=== PATIENT | female | born 1960 | race Caucasian/White ===

== ENCOUNTER 2016-10-07 09:09 | Day surgery (SDC) | payer BC ==
[~2016-10-07 09:09] MED LIST: RINGERS SOLUTION,LACTATED 1,000 ML IV PRN
[2016-10-07 09:47] LABS: Hematocrit 39.9 % (37.0-47.0); Hemoglobin 13.5 gm/dL (12.5-16.0); Mean Cell Volume 91.5 fl (78-100); Mean Corpuscular Hgb Conc 33.8 g/dl (32-36); Mean Platelet Volume 10.4 fl (6.0-9.5); Neutrophil # 2.7 K/mm3 (1.3-6.0); Neutrophil % 51.6 % (42-75.0); Platelet Count 183 K/mm3 (150-450); Red Blood Count 4.36 M/mm3 (4.2-5.4); Red Cell Distribution Width 12.1 % (11.5-14.0); White Blood Count 5.2 K/mm3 (4.0-10.5)
[2016-10-07] MEDS ORDERED: RINGERS SOLUTION,LACTATED 1,000 ML IV ONE (10:08)
[2016-10-07] MEDS ORDERED: SCOPOLAMINE HYDROBROMIDE 1.5 MG PATC TD ONE (10:30)
[2016-10-07] MEDS ORDERED: IBUPROFEN 600 MG TABLET PO PRN (11:59)
[2016-10-07] MEDS ORDERED: ACETAMINOPHEN 500 MG TABLET PO PRN (11:59)
[2016-10-07 13:53] VITALS: BP 128/76
--- NOTE | 2016-10-07 16:00 | OR ---
Operative Report - Dictated Report Narrative: Operative Report 10/07/16 Hysteroscopy Dilatation and Curettage Preoperative Diagnosis: Postmenopausal Bleeding, Personal History of Breast Cancer, Tamoxifen Use Postoperative Diagnosis: Postmenopausal Bleeding, Personal History of Breast Cancer, Tamoxifen Use Procedure: Hysteroscopy Dilatation and Curettage Surgeon: Donna Jain M.D. Anesthesia: [place]ete CRNA Findings: Uterine sound was 10 cm. There was an endometrial polyp on the right aspect of the endometrial cavity which was removed with curettage and sharp dissection hysteroscopically. Fluids: 500 ml EBL: Minimal Drains: None Complications: None Condition: Stable Pathology: Endometrial curettings and polyp Procedure: The patient was taken to the operating room with IV fluids running. She was placed in the dorsal lithotomy position after anesthesia was induced. A bivalve speculum was placed in the vagina. The anterior lip of the cervix was grasped with a single-tooth tenaculum. Uterine sound was passed into the endometrial cavity with ease. Uterine sound was 10 cm. The cervix was dilated with Júnior dilators. The hysteroscope was introduced into the endometrial cavity. The cavity was distended with normal saline. [place] were visualized bilaterally. There is an endometrial polyp on the right aspect of the endometrial cavity. The hysteroscope was removed. The cavity was sharply curetted without difficulty. The hysteroscope was once again introduced into the cavity. The cavity was completely curetted and the polyp was removed. The hysteroscope was removed. The single-tooth tenaculum was removed. Sites were hemostatic. The speculum was removed from the vagina. Sponge counts were correct 2. The patient tolerated the procedure well.
== END 2016-10-07 09:10 | disposition home or self-care (01) ==
LOC: AMB 09:09
PROVIDERS: ATTEND Obstetrics & Gynecology
PROC: 0UDB8ZX Extraction of Endometrium, Via Natural or Artificial Opening Endoscopic, Diagnostic (ICD-10-PCS; principal; 2016-10-07 10:30)
DX: N84.0 Polyp of corpus uteri (principal); N95.0 Postmenopausal bleeding; Z85.3 Personal history of malignant neoplasm of breast; Z79.810 Long term (current) use of selective estrogen receptor modulators (SERMs); Z68.29 Body mass index [BMI] 29.0-29.9, adult

== ENCOUNTER 2017-02-05 10:04 | Day surgery (SDC) | payer BC ==
[~2017-02-05 10:04] MED LIST changes: +ACETAMINOPHEN 160 MG/5 ML BTL PO PRN; +DEXAMETHASONE SOD PHOSPHATE 10 MG/ML VIAL IV PRN; +MORPHINE SULFATE 2 MG/ML DISP.SYRIN IV PRN; +MORPHINE SULFATE 4 MG/ML SYRG IV PRN; +ONDANSETRON HCL/PF 2 MG/ML VIAL IV PRN; +PROMETHAZINE HCL 10 MG in DEXTROSE 5 % IN WATER 50 ML IV PRN; +PROMETHAZINE HCL 5 MG in DEXTROSE 5 % IN WATER 50 ML IV PRN; +RINGER'S SOLUTION,LACTATED 1,000 ML IV PRN; -RINGERS SOLUTION,LACTATED 1,000 ML IV PRN; +oxyCODONE HCL 5 MG/5 ML UDC PO PRN
[2017-02-05] MEDS ORDERED: RINGER'S SOLUTION,LACTATED 1,000 ML IV ONE (10:31)
[2017-02-05] MEDS ORDERED: SCOPOLAMINE HYDROBROMIDE 1.5 MG PATC TD ONE (11:00)
[2017-02-05] MEDS ORDERED: BUPIVACAINE HCL 50 ML VIAL IJ ONE (11:59)
[2017-02-05] MEDS ORDERED: NALOXONE HCL 0.4 MG/ML VIAL IV PRN (12:16)
[2017-02-05] MEDS ORDERED: PROMETHAZINE HCL 12.5 MG in DEXTROSE 5 % IN WATER 50 ML IV PRN ×2 (12:16)
[2017-02-05] MEDS ORDERED: diphenhydrAMINE HCL 50 MG/ML VIAL IV PRN (12:16)
[2017-02-05] MEDS ORDERED: MORPHINE SULFATE 2 MG/ML DISP.SYRIN IV PRN (12:16)
[2017-02-05 15:22] VITALS: BP 122/50
== END 2017-02-05 10:05 | disposition home or self-care (01) ==
LOC: AMB 10:04
PROVIDERS: ATTEND Allergy & Immunology
PROC: 0CTQXZZ Resection of Adenoids, External Approach (ICD-10-PCS; 2017-02-05)
PROC: 0CTPXZZ Resection of Tonsils, External Approach (ICD-10-PCS; principal; 2017-02-05 11:50)
DX: J35.03 Chronic tonsillitis and adenoiditis (principal); Z68.29 Body mass index [BMI] 29.0-29.9, adult

== ENCOUNTER 2017-02-09 18:38 | Emergency (ER) | payer BC ==
[2017-02-09] MEDS ORDERED: diphenhydrAMINE HCL 12.5 MG/5 ML BTL PO ONE (19:02)
[2017-02-09] MEDS ORDERED: NYSTATIN 60 ML BTL PO ONE ×2 (19:02→19:08)
[2017-02-09] MEDS ORDERED: LIDOCAINE HCL 20 ML UDC MM ONE (19:02)
[2017-02-09] MEDS ORDERED: MAG HYDROX/ALUMINUM HYD/SIMETH 30 ML UDC PO ONE (19:02)
--- NOTE | 2017-02-09 19:11 | ERNOTE ---
Medical Problem HPI - Narrative Date of Service: 02/09/17 - General Chief Complaint: Nausea/Vomiting Time Seen by Provider: 02/09/17 18:56 Source: patient Exam Limitations: no limitations - Immun/Allergies/Home Medications Immunizations: IMMUNIZATION HX History of Influenza Vaccine Yes Hx Pneumococcal Vaccination No Allergies/Adverse Reactions: Allergies acetaminophen [From Percocet] Adverse Reaction (Mild, Verified 02/09/17 18:54) N/V hydrocodone bitartrate [From Vicodin] Adverse Reaction (Mild, Verified 02/09/17 18:54) N/V oxycodone HCl [From Percocet] Adverse Reaction (Mild, Verified 02/09/17 18:54) N/V IV-P Dye Adverse Reaction (Intermediate, Uncoded 02/05/17 10:13) NAUSEA, HYPOTENSION Home Medications: HOME MEDICATIONS Cholecalciferol (Vitamin D3) [Vitamin D3] 5,000 unit PO DAILY 09/30/16 [Last Taken Unknown] Albuterol Sulfate [Proair Hfa] 1 - 2 puff IH Q4H PRN 02/03/17 [Last Taken Unknown] oxyCODONE HCL [Roxicodone solution] 5 mg PO Q4H PRN #500 udc 02/05/17 [Last Taken Unknown] Nystatin 100,000 unit PO BID #10 oral.susp 02/09/17 [Last Taken Unknown] - History of Present History Narrative: Pt. comes in with c/o nausea vomiting and constipation after starting on oxycodone after tonsillectomy. Pt. had her tonsils removed 4 days ago and has had severe pain since and has tried Tylenol and Ibuprofen without relief so she has taken the oxycodone to attempt to get relief but while she gets mild relief it is not enough that she is able to eat and she only gets small sips of water down at a time. Review of Systems - Review of Systems Constitutional: Present: no symptoms reported. Absent: recent illness, fever, chills, weakness, fatigue, malaise EYE: Present: no symptoms reported ENT: Present: sore throat, throat swelling. Absent: nose congestion, nasal drainage Respiratory: Present: no symptoms reported. Absent: shortness of breath, cough , wheezing Cardiology: Present: no symptoms reported. Absent: chest pain, palpitations, edema Gastrointestinal/Abdominal: Present: no symptoms reported, nausea, vomiting, constipation. Absent: diarrhea, abdominal pain Genitourinary: Present: no symptoms reported Musculoskeletal: Present: no symptoms reported. Absent: back pain, joint pain Skin: Present: no symptoms reported. Absent: rash, change in color Neurological: Present: no symptoms reported. Absent: headache, dizziness/light- headedness, numbness, tingling All Other Systems: All systems neg except as marked - Patient's Past Medical History Patient History - Medical: Other - strep Patient History - Cardiac/Respiratory: Other - tonsillitis Patient History - Cancer: No Hx of Cancer Patient History - Surgical Procedures: D & C, T & A, Other Patient History - Other: None - Family History Father Family History - Medical: , No pertinent hx Family History - Cardiac/Respiratory: Coronary Heart Disease Family History - Cancer: Prostate Mother Family History - Medical: Diabetes Type 2 Family History - Cardiac/Respiratory: No pertinent hx Family History - Cancer: No pertinent family hx Sister Family History - Medical: , Other Family History - Cardiac/Respiratory: No pertinent hx Family History - Cancer: No pertinent family hx - Social History Living Situations: significant other Abuse History: No History of abuse Psych History: No pertinent hx Smoking Status: Never smoker Have you smoked in the past 12 months: No Alcohol Use: none Drug Use: none - Immunizations Hx Pneumococcal Vaccination: No History of Influenza Vaccine: Yes Physical Exam - Physical Exam General Appearance: Present: wd/wn, alert, no apparent distress Head Exam: Present: normal inspection, no evidence of injury Eye Exam: Normal inspection: bilateral, PERRL: bilateral, EOMI: bilateral Ears, Nose, Throat: Present: pharyngeal erythema, other - white exudate on tongue roof of mouth and inner cheeks Neck: Present: normal inspection, nontender. Absent: lymphadenopathy (R), lymphadenopathy (L) Respiratory: Present: no respiratory distress, normal breath sounds, no accessory muscle use, chest nontender, lungs clear Cardiovascular/Chest: Present: regular rate, rhythm, no murmur, normal peripheral pulses Gastrointestinal/Abdominal: Present: normal bowel sounds, nontender, nondistended, soft, no organomegaly Back Exam: Present: normal inspection Extremity Exam: Present: normal inspection Neurological Exam: Present: alert, oriented, normal mood/affect, no motor/ sensory deficits Skin Exam: Present: warm/dry, pallor ED Progress - Date and Time Seen: Date and Time: 02/09/17 20:06 Pt. is feeling improved and drank 240ml of water while here. feel taht pt. is safe to go home but needs to follow up with Dr Dennison tomorrow. - Results and Orders Patient's Lab Results:: I have reviewed the patient's lab results. - Vital Signs Patient's Vital Signs:: I have reviewed the patient's vital signs. Vital Signs: Vital Signs 02/09/17 18:51 Temperature 37.8 C H Pulse Rate 89 Respiratory 14 Rate Blood Pressure 139/81 O2 Sat by Pulse 99 Oximetry - Progress/Reassessment Chief Complaint: Nausea/Vomiting Progress:: Improved Departure - Departure Clinical Impression: Post-operative pain Disposition: Home self-care Condition: Good Instructions: Tonsillectomy, Adult, Care After, Thrush, Adult Additional Instructions: Please continue Ibuprofen and Tylenol liquid every two hours alternating and drink ensure or carnation instant breakfast three times a day for nutrients and drink 8 8oz glasses of water per day. Please call Dr Dennison office tomorrow for follow up. Referrals: Manuel Hansen MD [Primary Care Provider] - Prescriptions: Nystatin 100,000 unit PO BID #10 oral.susp
[2017-02-09 19:18] LABS: Hematocrit 41.9 % (37.0-47.0); Hemoglobin 14.6 gm/dL (12.5-16.0); Mean Cell Volume 87.3 fl (78-100); Mean Corpuscular Hemoglobin 30.4 pg (27-31); Mean Corpuscular Hgb Conc 34.8 g/dl (32-36); Mean Platelet Volume 10.3 fl (6.0-9.5); Neutrophil # 4.3 K/mm3 (1.3-6.0); Neutrophil % 64.3 % (42-75.0); Platelet Count 216 K/mm3 (150-450); White Blood Count 6.8 K/mm3 (4.0-10.5)
[2017-02-09 19:30] LABS: Albumin * 3.6 gm/dl (3.4-5.0); Anion Gap 18.6 mmol/L (6.8-13.8); BUN/Creatinine Ratio 10.5 (9.0-21.6); Bilirubin, Total 0.7 mg/dL (0.0-1.1); Potassium 3.6 mmol/L (3.4-4.6); Total Protein 7.5 gm/dL (6.2-8.2)
[2017-02-09 20:21] VITALS: BP 129/69
== END 2017-02-09 20:19 | disposition home or self-care (01) ==
LOC: ER 18:38
DX: G89.18 Other acute postprocedural pain (principal)